=== PATIENT | female | born 1990 | race American Indian/Alaskan Native ===

== ENCOUNTER 2020-06-30 17:18 | Outpatient (CLI) | payer OTHER, MEDICAID ==
[2020-06-30 17:57] VITALS: BP 104/58
--- NOTE | 2020-06-30 19:18 | Ultrasound Report ---
US OB BPP wo non-stress, US OB limited INDICATION / CLINICAL INFORMATION: BPP/JARET. COMPARISON: None available. FINDINGS: Single, viable intrauterine . heart rate 127. Amniotic fluid volume is normal, with a fluid index of 10.5 cm. Biophysical profile: breathin movement: 2 tone: 2 Amniotic fluid volume: 2 Total biophysical profile score: 8/8 IMPRESSION: 1. Viable intrauterine . 2. Normal biophysical profile. Signer Name: Jessee Walker MD Signed: 06/30/2020 7:14 PM Workstation Name: [id number]
[2020-06-30] MEDS ORDERED: LACTATED RINGERS 500 ML IV ONE (19:19)
== END 2020-06-30 19:44 | disposition home or self-care (01) ==
LOC: TRG 17:18 → APU 17:19 → TRG 19:44
PROVIDERS: ATTEND Obstetrics & Gynecology
DX: Z34.03 Encounter for supervision of normal first pregnancy, third trimester (principal); Z3A.34 34 weeks gestation of pregnancy
CPT/HCPCS: 59025; 76815; 76819